=== PATIENT | female | born 1950 | race Caucasian/White ===

== ENCOUNTER 2017-05-16 15:41 | Emergency (ER) | payer OTHER ==
[2017-05-16 15:46] VITALS: BP 138/105
--- NOTE | 2017-05-16 17:01 | UC ---
Ear Complaint HPI - HPI Summary HPI Summary: TWO DAYS OF RIGHT EAR TENDERNESS AND SWELLING AROUND EAR AND CHEEK. NO SORE THROAT. NO FEVER. PATIENT IS A DIABETIC. HAD HIGH SUGAR VALUES THIS MORNING BUT CURRENTLY UNDER CONTROL. NO DENTAL PAIN OR RECENT SURGERIES. - History of Current Complaint Chief Complaint: UCSkin Stated Complaint: FACIAL SWELLING Time Seen by Provider: 05/16/17 16:13 Hx Obtained From: Patient Onset/Duration: Gradual Onset, Lasting Days, Still Present Severity Initially: Moderate Severity Currently: Moderate Aggravating Factors: Nothing Alleviating Factors: Nothing Associated Signs/Symptoms: Positive: Swelling @ - RIGHT CHEEK AND JAW NEAR EAR - Allergies/Home Medications Allergies/Adverse Reactions: Allergies Allergy/AdvReac Type Severity Reaction Status Date / Time Aspirin AdvReac Severe GI Upset Verified 05/16/17 15:45 Home Medications: Home Medications Anastrozole [Arimidex] 1 mg PO DAILY 05/16/17 [History Confirmed 05/16/17] Aspirin [Aspirin 81 MG TAB] 81 mg PO DAILY 05/16/17 [History Confirmed 05/16/17] DULoxetine DR CAP* [Cymbalta CAP*] 30 mg PO DAILY 05/16/17 [History Confirmed ] Metoprolol Succinate [Toprol Xl] 50 mg PO DAILY 05/16/17 [History Confirmed ] traZODone TAB* [Desyrel TAB*] 50 mg PO TID 05/16/17 [History Confirmed 05/16/17] PMH/Surg Hx/FS Hx/Imm Hx Previously Healthy: Yes - Surgical History Surgical History: Yes Surgery Procedure, Year, and Place: Double masectomy, right knee replacement, oopherectomy, gall bladder, - Family History Known Family History: Positive: Diabetes Negative: Blood Disorder - Social History Occupation: Retired Lives: With Family Alcohol Use: Occasionally Substance Use Type: None Smoking Status (MU): Former Smoker Review of Systems Constitutional: Negative Skin: Negative Eyes: Negative ENT: Ear Ache, Other - SWELLING TO SKIN AR RIGHT EAR AND JAW NEAR EAR Respiratory: Negative Cardiovascular: Negative Gastrointestinal: Negative Genitourinary: Negative Motor: Negative Neurovascular: Negative Musculoskeletal: Negative Neurological: Negative Psychological: Negative All Other Systems Reviewed And Are Negative: Yes Physical Exam Triage Information Reviewed: Yes Appearance: Well-Appearing, No Pain Distress, Well-Nourished Vital Signs: Initial Vital Signs Temp 97.6 F 05/16/17 15:44 Pulse 80 05/16/17 15:44 Resp 16 05/16/17 15:44 BP 138/105 05/16/17 15:44 Pulse Ox 100 05/16/17 15:44 Vital Signs Reviewed: Yes Eye Exam: Normal ENT: Positive: Hearing grossly normal, Pharynx normal, TMs normal, Other: - RIGHT EAR EDEMA OF EAC Dental: Positive: Cellulitis @ - RIGHT EAR AND JAW, Cervical Lymphadenopathy - RIGHT ANTERIOR CERVICAL CHAIN Neck exam: Normal Neck: Positive: Supple, Nontender, No Lymphadenopathy Respiratory Exam: Normal Respiratory: Positive: Chest non-tender, Lungs clear, Normal breath sounds, No respiratory distress, No accessory muscle use Cardiovascular Exam: Normal Cardiovascular: Positive: RRR, No Murmur, Pulses Normal Abdominal Exam: Normal Musculoskeletal Exam: Normal Musculoskeletal: Positive: Strength Intact, ROM Intact Neurological Exam: Normal Psychological Exam: Normal Skin Exam: Normal Ear Complaint Course/Dx - Differential Dx/Diagnosis Differential Diagnosis/HQI/PQRI: Cellulitis, Otitis Externa, Otitis Media Provider Diagnoses: RIGHT EAR OTITIS EXTERNA, RIGHT EAR FACIAL CELLULITIS Discharge - Discharge Plan Condition: Stable Disposition: HOME Prescriptions: Amoxicillin/Clavulanate TAB* [Augmentin TAB 875*] 875 mg PO BID #20 tab Neomyc/Polym/HC 1% OTIC SUSP* [Cortisporin Otic Susp 1%*] 4 drop RIGHT EAR QID # 1 btl Patient Education Materials: Cellulitis (ED), Otitis Externa (ED), Otitis Media (ED) Referrals: [facility] [place] [facility] [Outside] Additional Instructions: PLEASE SEEK CARE AT THE EMERGENCY DEPARTMENT IF YOU DEVELOP FEVERS, IF THE INFECTION SPREADS, OR IF NEW SYMPTOMS DEVELOP
== END 2017-05-16 16:47 | disposition home or self-care (01) ==
LOC: UCEAST 15:41
DX: H60.11 Cellulitis of right external ear (principal); E11.9 Type 2 diabetes mellitus without complications
CPT/HCPCS: 99201; G0463

== ENCOUNTER 2019-05-16 14:10 | Emergency (ER) | payer MEDICARE, OTHER ==
[2019-05-16 14:44] VITALS: BP 151/68
--- NOTE | 2019-05-16 14:54 | UC ---
Skin Complaint HPI - HPI Summary HPI Summary: 68 y/o female presents to the urgent care c/o a black tick bite on the back of her left knee. Pt reports it was noticed today about 1 hrs ago by her nephew and he removed it. Tick exposure was probably there for 2 days. She feels itchiness but no pain. Pt has had other tick bites this week, but never that long. Pt is visiting from [place]. Pt denies fever, SOB, chest pain, abdominal pain, N/V/D, GIANG, dizziness - History of Current Complaint Chief Complaint: UCSkin Time Seen by Provider: 05/16/19 14:51 Stated Complaint: TICK BITE Hx Obtained From: Patient ?: No Onset/Duration: Sudden Onset, Lasting Days - 2 days, Resolved - tick removed today Skin Exposure Onset/Duration: Days Ago - 2 days Timing: Constant Onset Severity: Mild Current Severity: Mild Pain Intensity: 1 Pain Scale Used: 0-10 Numeric Location: Discrete - left posterior knee w/ tick bite Character: Pruritus, Redness Aggravating Factor(s): Touch Alleviating Factor(s): Other - tick removal Associated Signs & Symptoms: Positive: Rash - tick bite in the posterior left knee. Negative: Fever, Chills Related History: Possible Reaction to: Insect - tick - Allergy/Home Medications Allergies/Adverse Reactions: Allergies Allergy/AdvReac Type Severity Reaction Status Date / Time aspirin AdvReac Mild GI Upset Verified 05/16/19 14:45 Home Medications: Home Medications Insulin ASPART (NF) [Novolog (NF)] 100 unit SC DAILY 05/16/19 [History Confirmed 05/16/19] Losartan TAB* [Cozaar TAB*] 25 mg PO DAILY 05/16/19 [History Confirmed 05/16/19] Rosuvastatin (NF) [Crestor (NF)] 20 mg PO QPM 05/16/19 [History Confirmed ] PMH/Surg Hx/FS Hx/Imm Hx Previously Healthy: Yes Endocrine History: Diabetes, Dyslipidemia Cardiovascular History: Hypertension Psychological History: Depression - Surgical History Surgical History: Yes Surgery Procedure, Year, and Place: Double masectomy, right knee replacement, oopherectomy, gall bladder, shoulder and wrist repair - Family History Known Family History: Positive: Diabetes Negative: Blood Disorder - Social History Occupation: Retired Lives: With Family Alcohol Use: Occasionally Substance Use Type: None Smoking Status (MU): Former Smoker Review of Systems All Other Systems Reviewed And Are Negative: Yes Constitutional: Positive: Negative Skin: Positive: Rash - tick bite in the left posterior knee, tick removed today Eyes: Positive: Negative ENT: Positive: Negative Respiratory: Positive: Negative Cardiovascular: Positive: Negative Gastrointestinal: Positive: Negative Genitourinary: Positive: Negative Motor: Positive: Negative Neurovascular: Positive: Negative Musculoskeletal: Positive: Negative Neurological: Positive: Negative Psychological: Positive: Negative Is Patient Immunocompromised?: No Physical Exam - Summary Physical Exam Summary: Vital Signs Reviewed: Yes General: well developed, well nourished obese female sitting in the examining table w/o any apparent distress. Eyes: Positive: Conjunctiva Clear - PERRLA, EOMI ENT: Positive: Normal ENT inspection, Hearing grossly normal, Pharynx normal, TMs normal Neck: Positive: Supple, Nontender, No Lymphadenopathy Respiratory: Positive: Chest nontender, Lungs clear, Normal breath sounds Cardiovascular: Positive: RRR, No Murmur, Pulses Normal Abdomen Description: Positive: Nontender, No Organomegaly, Soft. Negative: CVA Tenderness (R), CVA Tenderness (L) Bowel Sounds: Positive: Present Musculoskeletal: Positive: Strength Intact, ROM Intact, No Edema Neurological Exam: Normal Psychological Exam: Normal Skin: Positive: rashes - Posterior aspect of Left knee with tick bite with surrounding erythema, non tender to palpation. tick no longer present, no swelling or drainage observed. Triage Information Reviewed: Yes Vital Signs: Initial Vital Signs Temp 97.3 F 05/16/19 14:38 Pulse 80 05/16/19 14:38 Resp 16 05/16/19 14:38 BP 151/68 05/16/19 14:38 Pulse Ox 98 05/16/19 14:38 Course/Dx - Course Course Of Treatment: 68 y/o female presents to the urgent care c/o a black tick bite on the back of her left knee. Pt reports it was noticed today about 1 hrs ago by her nephew and he removed it. Tick exposure was probably there for 2 days. She feels itchiness but no pain. Pt has had other tick bites this week, but never that long. Pt is visiting from [place]. Pt denies fever, SOB, chest pain, abdominal pain, N/V/D, GIANG, dizziness. Hx obtained. Pt w/ Posterior aspect of Left knee with tick bite with surrounding erythema, non tender to palpation. tick no longer present, no swelling or drainage observed on examination..the area clened w/ alcohol swabs, and bacitracin oint applied over tick bite. Antibiotic prophylaxis with Doxycycline given to the patient to prevent lyme Disease.. Pt tolerated well medication. Pt advised to observe the area for the development or Erythema Migrans for upto 30 days following exposure. Advised if she develops fever or erythema Migrans to return to the clinic or PCP for further treatment .Pt's BP is elevated today advised to decrease salt in diet, monitor BP and f/u with PCP for further management. Pt understood and agreed with plan of care. - Differential Diagnoses - Skin Complaint Differential Diagnoses: Abscess, Cellulitis, Contact Dermatitis, Local Allergic Reaction, MRSA, Tick Born Illness, Urticaria - Diagnoses Provider Diagnosis: Tick bite of left lower leg, Uncontrolled hypertension Discharge - Sign-Out/Discharge Documenting (check all that apply): Patient Departure - D/C home All imaging exams completed and their final reports reviewed: No Studies - Discharge Plan Condition: Stable Disposition: HOME Prescriptions: Bacitracin OINTMENT* 1 applic TOPICAL BID #1 tube Patient Education Materials: Tick Bite (ED) Referrals: [facility] [place] [facility] [Outside] - 2 Weeks Dorothy DEL ROSARIO,Dayton Kulkarni [Medical Doctor] - If Needed Additional Instructions: 1- Please observe the area for the development or Erythema Migrans for upto 30 days following exposure. Components of the tick saliva can cause transient erythema that should not be confused with Erythema Migrans. If you develop the bull's eye rash, fever, joint pains please return to the urgent care or f/u with your PCP or Dr De La Cruz for further management. Apply Bacitracin oint around tick bite as directed 2-Antibiotic prophylaxis with Doxycycline was given to you today to prevent lyme Disease. Lyme serology can be drawn in 2 weeks with your PCP to r/o Lyme disease since there is probability of negative results at early exposure. 3-Your BP is elevated today. please decrease salt in your diet, monitor BP and if it continues to be elevated please f/u with your PCP for further management. - Billing Disposition and Condition Condition: STABLE Disposition: Home - Attestation Statements Provider Attestation: I was available for consult. This patient was seen by the ISAIAS. The patient was not presented to , seen by or examined by me Bro Vaughn MD
[2019-05-16] MEDS ORDERED: DOXYcycline CAP(*) 100 MG PO ONE (15:05)
== END 2019-05-16 15:27 | disposition home or self-care (01) ==
LOC: UCEAST 14:10
DX: T63.481A Toxic effect of venom of other arthropod, accidental (unintentional), initial encounter (principal); Y92.9 Unspecified place or not applicable; I10 Essential (primary) hypertension; E11.9 Type 2 diabetes mellitus without complications; E78.5 Hyperlipidemia, unspecified; F32.9 Major depressive disorder, single episode, unspecified; Z79.4 Long term (current) use of insulin; Z87.891 Personal history of nicotine dependence
CPT/HCPCS: 99212; A9270-GY; G0463